=== PATIENT | male | born 1990 | race Caucasian/White ===

== ENCOUNTER 2023-01-31 05:06 | Emergency (ER) | payer OTHER ==
[~2023-01-31] VITALS: Ht 175.3 cm; Wt 81.7 kg
[2023-01-31] MEDS ORDERED: BUPRENORPHINE HC8 MG SL (05:14)
[2023-01-31 05:40] LABS: HEMOGLOBIN 12.7 g/dL (12.0-18.0); MCH 30.2 (27-36); RBC 4.19 M/ul (4.3-5.7)
[2023-01-31 05:45] LABS: BASOPHILS 1.3 % (0-2); EOSINOPHILS 0.6 % (0-6); HEMATOCRIT 37.7 % (35.0-50.0); LYMPHOCYTES 17.8 % (24-44); MCHC 33.6 g/dl (30-36); MCV 89.9 fl (81-99); MONOCYTES 4.6 % (0-12); NEUTROPHILS 75.7 % (39-80); RDW 13.1 (10.5-15.0)
[2023-01-31 05:53] LABS: ALBUMIN 4.4 g/dL (3.4-5.0); ALBUMIN/GLOBULIN RATIO 1.33 (1.1-2.4); ANION GAP 19.9 (7-21); BILIRUBIN, TOTAL 0.6 ng/dL (0.2-1.0); BUN/CREATININE RATIO 28.26 (6.0-28.6); CALCIUM 9.3 mg/dL (8.5-10.1); CREATININE, SERUM 0.92 mg/dL (0.70-1.30); POTASSIUM 3.9 mmol/L (3.5-5.1); PROTEIN, TOTAL 7.7 g/dL (6.4-8.2)
[2023-01-31 06:56] LABS: PLATELET COUNT 245 K/uL (140-440)
[2023-01-31] MEDS ORDERED: ONDANSETRON ODT8 MG PO (07:03)
[2023-01-31 07:27] VITALS: BP 107/61
--- OUTSIDE RECORDS SUMMARY | 2023-01-31 07:31 | XMS ---
PreManage Notification: BREANA VICTOR Security Terminal Gauger Supervisor Events No recent Security Events currently on file CRITERIA MET - PDM CARE PROVIDERS -Justine- Dentist: Office Messenger Helper [facility] PHONE: [phone] ANTONIETTA KENDALL Physician Traveling Representative Current PHONE: Unknown [facility]: [facility] COMMUNITY PHONE: Unknown RUCHI GONZALEZ [facility] Current PHONE: [phone] [address] [facility] Current PHONE: Unknown HARISH LILLY Physician Traveling Representative Current PHONE: [phone] Francine has no Care Guidelines for this patient. [place] VISIT COUNT (12 MO.) 1 [facility] [place] [address] E[place] [place] TOTAL 2 NOTE: Visits indicate total known visits. ED/UCC VISIT TRACKING (12 MO.) 01/31/2023 05:07 [facility] [place] TYPE: Emergency COMPLAINT: - VOMITING BRIGHT RED BL00S 04/02/2022 12:26 [facility] [place] TYPE: Emergency DIAGNOSES: - Unspecified sprain of right wrist, initial encounter - JAREK ROBB INPATIENT VISIT TRACKING (12 MO.) No inpatient visits to display in this time frame [email or web address]
== END 2023-01-31 07:15 | disposition home or self-care (01) ==
LOC: ED 05:06
PROVIDERS: Emergency Medicine
DX: K29.00 Acute gastritis without bleeding (principal); D72.829 Elevated white blood cell count, unspecified; Z79.899 Other long term (current) drug therapy
CPT/HCPCS: 36415; 80053; 85025; 85060; 96374; 99284-25; A9270; J2405; J7030

== ENCOUNTER 2023-03-16 09:57 | Emergency (ER) | payer OTHER ==
[~2023-03-16] VITALS: Ht 175.3 cm; Wt 81.8 kg
[~2023-03-16 09:57] MED LIST: BUPRENORPHINE HC8 MG SL; ONDANSETRON ODT8 MG PO
--- OUTSIDE RECORDS SUMMARY | 2023-03-16 10:01 | XMS ---
PreManage Notification: BREANA VICTOR Security Extractions Technologist Events No recent Security Events currently on file CRITERIA MET - PDM CARE PROVIDERS -Justine- Dentist: Transplant Registered Nurse [facility] PHONE: [phone] ANTONIETTA KENDALL Physician [employer] Pulper Current PHONE: Unknown [facility] COMMUNITY PHONE: Unknown RUCHI GONZALEZ [facility] Current PHONE: [phone] [address] [facility] Current PHONE: Unknown HARISH LILLY Physician [employer] Current PHONE: [phone] Francine has no Care Guidelines for this patient. [place] VISIT COUNT (12 MO.) 2 [facility] TOTAL 3 NOTE: Visits indicate total known visits. ED/C VISIT TRACKING (12 MO.) 03/16/2023 09:58 [facility] [place] TYPE: Emergency COMPLAINT: - CHEST PAIN 01/31/2023 05:07 [facility] [place] TYPE: Emergency COMPLAINT: - VOMITING BRIGHT RED BL00S DIAGNOSES: - Acute gastritis without bleeding - Elevated white blood cell count, unspecified - Hematemesis - Other long-term (current) drug therapy 04/02/2022 12:26 [facility] [place] TYPE: Emergency DIAGNOSES: - Unspecified sprain of right wrist, initial encounter - JAREK ROBB INPATIENT VISIT TRACKING (12 MO.) No inpatient visits to display in this time frame [id number]
[2023-03-16 10:17] LABS: EOSINOPHILS 1.5 % (0-6); HEMATOCRIT 37.1 % (35.0-50.0); HEMOGLOBIN 12.7 g/dL (12.0-18.0); LYMPHOCYTES 39.3 % (24-44); MCH 31.6 (27-36); MCHC 34.2 g/dl (30-36); MCV 92.5 fl (81-99); MONOCYTES 6.8 % (0-12); NEUTROPHILS 51.4 % (39-80); PLATELET COUNT 348 K/uL (140-440); RBC 4.01 M/ul (4.3-5.7); RDW 13.8 (10.5-15.0)
[2023-03-16 10:29] LABS: BILIRUBIN, URINE NEGATIVE (negative); BLOOD/HGB, URINE NEGATIVE (Negative); KETONE, URINE NEGATIVE (Negative); LEUK ESTERASE, URINE NEGATIVE (negative); NITRITE, URINE NEGATIVE (negative)
[2023-03-16 10:38] LABS: ALBUMIN 4.6 g/dL (3.4-5.0); ALBUMIN/GLOBULIN RATIO 1.35 (1.1-2.4); ANION GAP 9.6 (7-21); BILIRUBIN, TOTAL 0.3 ng/dL (0.2-1.0); BUN/CREATININE RATIO 20.65 (6.0-28.6); CALCIUM 9.3 mg/dL (8.5-10.1); CREATININE, SERUM 0.92 mg/dL (0.70-1.30); POTASSIUM 3.6 mmol/L (3.5-5.1)
[2023-03-16] MEDS ORDERED: FLOMAX0.4 MG PO (11:17)
[2023-03-16] MEDS ORDERED: METHOCARBAMOL750 MG PO (11:17)
[2023-03-16 11:20] VITALS: BP 102/66
--- NOTE | 2023-03-17 22:45 | EKG ---
[facility] [address] [facility] [place] [address] Signed Normal sinus rhythm Normal ECG No previous ECGs available Confirmed by Josie Adamson MD () on 03/17/2023 10:44:48 PM Electronically Signed By: JOSIE ADAMSON MD 03/17/23 2245 PATIENT NAME: NEAL VICTORS MARCOS Electrocardiogram DATE OF : [birth year] PHYSICIAN: JOSIE ADAMSON MD REPORT #: [id number] REPORT IS CONFIDENTIAL AND NOT TO BE RELEASED WITHOUT AUTHORIZATION
== END 2023-03-16 11:20 | disposition home or self-care (01) ==
LOC: ED 09:57
PROVIDERS: Internal Medicine
DX: R35.1 Nocturia (principal); R07.89 Other chest pain; R10.9 Unspecified abdominal pain; Z79.899 Other long term (current) drug therapy
CPT/HCPCS: 36415; 71045; 74176; 80053; 81003; 84484; 85025; 93005; 93010